=== PATIENT | female | born 1990 | race African-American/Black ===

== ENCOUNTER 2017-11-24 03:41 | Inpatient (IN) ==
[2017-11-24 04:58] LABS: Apearance,Urine Slightly Hazy (Clear); Bilirubin,Urine Negative (Negative); Blood, Urine Moderate mg/dL (Negative); Glucose,Urine (UA) Negative (Negative); Ketones,Urine Negative (Negative); Mucus,Urine Moderate /LPF (Occasional); Nitrite,Urine Negative (Negative); Protein,Urine Negative; RBC,Urine <1 /HPF (0-4); Squamous Epithelial Cell,Urine Occasional /HPF (0-10); Urine Color Yellow (Yellow); Urine Specific Gravity 1.028 (1.001-1.035); Urine Urobilinogen < 2.0 EU/DL (0.2-1.0); WBC,Urine 1 /HPF (0-6)
[2017-11-24] MEDS ORDERED: MEPERIDINE 50 MG/1 ML VIAL IV ONE (05:30)
[2017-11-24] MEDS ORDERED: ONDANSETRON 4 MG/2 ML VIAL IV ONE (05:30)
[2017-11-24] MEDS: LACTATED RINGERS 1,000 ML IV SCH ×3 (05:40→12:52)
[2017-11-24] MEDS ORDERED: BUTORPHANOL 1 MG/ML VIAL IV PRN (09:58)
[2017-11-24] MEDS ORDERED: OXYTOCIN/LR 20 UNIT/1,000 ML BAG IV SCH (10:00)
[2017-11-24] MEDS ORDERED: PROMETHAZINE 25 MG/1 ML VIAL IM ONE (10:08)
[2017-11-24] MEDS ORDERED: FAMOTIDINE 20 MG/2 ML VIAL IV ONE (10:08)
[2017-11-24] MEDS ORDERED: ePHEDrine 50 MG/ML AMP IV PRN ×2 (10:08)
[2017-11-24] MEDS ORDERED: diphenhydrAMINE 50 MG/1 ML VIAL IV PRN ×2 (10:08)
[2017-11-24] MEDS ORDERED: hydrOXYzine HCL 25 MG/1 ML VIAL IM PRN (10:08)
[2017-11-24] MEDS ORDERED: CITRIC ACID/SODIUM CITRATE 30 ML UDCUP PO ONE (10:08)
[2017-11-24] MEDS ORDERED: fentaNYL 2 MCG/ROPIV 0.2% EPID 150 ML EPIDURAL SCH (10:30)
[2017-11-24 10:44] LABS: Basophils % 0.3 % (0.0-0.8); Eosinophils % 0.3 % (0.00-10.9); Hematocrit 37.1 VOL% (35.7-47.0); Hemoglobin 12.1 GM/DL (12.0-16.0); Immature Granulocytes % 0.6 %; Immature Granulocytes Absolute 0.07 #; Lymphocytes # 1.9 10*3/uL (1.4-4.0); Lymphocytes % 15.2 % (21.3-54.2); Mean Corpuscular HGB Conc 32.6 GM/DL (32-36); Mean Corpuscular Hemoglobin 29 PG (27-34); Mean Corpuscular Volume 88.3 FL (87-102); Mean Platelet Volume 11.1 FL (9.6-12.0); Monocytes # 0.6 10*3/uL (0.11-0.8); Monocytes % 4.6 % (1.7-12.7); Platelet Count 198 T/CUMM (130-400); Red Cell Distribution Width 15.4 % (9.3-17.3); White Blood Count 12.7 T/CUMM (4-12)
[2017-11-24 11:02] LABS: Alanine Aminotransferase 14 U/L (13-56); Albumin 2.6 G/DL (3.4-5.0); Alkaline Phosphatase 199 U/L (45-117); Aspartate Amino Transferase 11 U/L (0-37); Bilirubin,Total < 0.39 MG/DL (0.2-1.0); Blood Urea Nitrogen 6 MG/DL (7-18); Calcium 8.9 MG/DL (8.5-10.1); Glucose 85 MG/DL (74-106); Osmolality,Calculated 271.7 MOS/KG (273-304); Sodium 138 MMOL/L (136-145); Total Protein 6.7 G/DL (6.4-8.3)
[2017-11-24 14:04] LABS: Apearance,Urine Slightly Hazy (Clear); Bilirubin,Urine Negative (Negative); Blood, Urine Negative (Negative); Glucose,Urine (UA) Negative (Negative); Ketones,Urine 5 mg/dL (Negative); Mucus,Urine Many /LPF (Occasional); Nitrite,Urine Negative (Negative); Protein,Urine 30 MG/DL; RBC,Urine 1 /HPF (0-4); Squamous Epithelial Cell,Urine Occasional /HPF (0-10); Urine Color Yellow (Yellow); Urine Specific Gravity 1.023 (1.001-1.035); Urine Urobilinogen < 2.0 EU/DL (0.2-1.0); WBC,Urine 4 /HPF (0-6)
[2017-11-24 19:15] LABS: Cord Venous Blood HCO3 22.2 MMOL/L; Cord Venous Blood PO2 27.8
[2017-11-24] MEDS ORDERED: RHO(D) IMMUNE GLOBULIN 300 MCG SYRINGE IM ONE (20:35)
[2017-11-24] MEDS ORDERED: WITCH HAZEL PADS 100/JAR TOP PRN (20:35)
[2017-11-24] MEDS ORDERED: MEASLES/MUMPS/RUBELLA VACCINE 0.5 ML VIAL SUBCUT ONE (20:35)
[2017-11-24] MEDS ORDERED: oxyCODONE/ACETAMINOPHEN 5-325 MG TABLET PO PRN (20:35)
[2017-11-24] MEDS ORDERED: BENZOCAINE 20%/MENTHOL 0.5% SPRAY 56 GM CAN TOP PRN (20:35)
[2017-11-24] MEDS ORDERED: DIPH/TET/ACEL PERT BOOSTER VACCINE 0.5 ML VIAL IM ONE (20:35)
[2017-11-24] MEDS ORDERED: ACETAMINOPHEN 325 MG TABLET PO PRN (20:35)
[2017-11-24] MEDS ORDERED: LANOLIN 50% CREAM 0.3 OZ TUBE TOP PRN (20:35)
[2017-11-24] MEDS ORDERED: HYDROCORTISONE 2.5% RECTAL CREAM 30 GM TUBE TOP PRN (20:35)
[2017-11-24] MEDS ORDERED: IBUPROFEN 800 MG TABLET PO PRN (20:35)
[2017-11-24] MEDS ORDERED: BISACODYL 10 MG SUPP RECTAL PRN (20:35)
[2017-11-24] MEDS ORDERED: ACETAMINOPHEN/CODEINE 300-30 MG TABLET PO PRN (20:35)
[2017-11-24] MEDS ORDERED: OXYTOCIN/LR 20 UNIT/1,000 ML BAG IV ONE (20:41)
[2017-11-24] MEDS: DOCUSATE SODIUM 100 MG CAPSULE PO SCH (21:09)
[2017-11-24] MEDS: oxyCODONE/ACETAMINOPHEN 5-325 MG TABLET PO PRN (23:13)
[2017-11-25 07:14] LABS: Basophils # 0.1 10*3/uL (0.0-0.2); Basophils % 0.4 % (0.0-0.8); Eosinophils # 0.3 10*3/uL (0.0-0.87); Eosinophils % 1.8 % (0.00-10.9); Hematocrit 34.5 VOL% (35.7-47.0); Hemoglobin 11.1 GM/DL (12.0-16.0); Immature Granulocytes % 0.4 %; Immature Granulocytes Absolute 0.07 #; Lymphocytes # 2.5 10*3/uL (1.4-4.0); Lymphocytes % 15.7 % (21.3-54.2); Mean Corpuscular HGB Conc 32.2 GM/DL (32-36); Mean Corpuscular Hemoglobin 29 PG (27-34); Mean Corpuscular Volume 88.9 FL (87-102); Mean Platelet Volume 10.6 FL (9.6-12.0); Monocytes % 6.3 % (1.7-12.7); Neutrophils # 11.9 10*3/uL (1.4-7.4); Neutrophils % 75.4 % (38.7-73.9); Platelet Count 166 T/CUMM (130-400); Red Blood Count 3.88 MC/CUMM (3.8-5.5); Red Cell Distribution Width 15.3 % (9.3-17.3); White Blood Count 15.8 T/CUMM (4-12)
[2017-11-25] MEDS: DOCUSATE SODIUM 100 MG CAPSULE PO SCH ×2 (08:56→22:10)
[2017-11-25] MEDS: oxyCODONE/ACETAMINOPHEN 5-325 MG TABLET PO PRN (13:48)
[2017-11-26] MEDS: oxyCODONE/ACETAMINOPHEN 5-325 MG TABLET PO PRN (00:09)
[2017-11-26 07:19] VITALS: BP 153/85
[2017-11-26] MEDS: DOCUSATE SODIUM 100 MG CAPSULE PO SCH (08:23)
== END 2017-11-26 13:40 | disposition home or self-care (01) | DRG 560 ==
LOC: N.LDOUT 03:41 → N.LD 03:43 → N.LDOUT 10:15 → N.LD 10:15 → N.OB 20:15
PROVIDERS: ADMIT Obstetrics & Gynecology; ATTEND Obstetrics & Gynecology

== ENCOUNTER 2018-04-09 15:13 | Observation (INO) ==
[2018-04-09] MEDS ORDERED: ONDANSETRON ODT 4 MG TABLET PO STA (17:08)
[2018-04-09] MEDS ORDERED: ONDANSETRON ODT 4 MG TABLET PO ONE (17:23)
[2018-04-09 17:28] LABS: Basophils % 0.2 % (0.0-0.8); Eosinophils % 0.2 % (0.00-10.9); Hematocrit 42.5 VOL% (35.7-47.0); Hemoglobin 13.9 GM/DL (12.0-16.0); Immature Granulocytes % 0.5 %; Immature Granulocytes Absolute 0.09 #; Lymphocytes # 1.1 10*3/uL (1.4-4.0); Lymphocytes % 6.2 % (21.3-54.2); Mean Corpuscular HGB Conc 32.7 GM/DL (32-36); Mean Corpuscular Hemoglobin 30 PG (27-34); Mean Platelet Volume 10.8 FL (9.6-12.0); Monocytes # 0.5 10*3/uL (0.11-0.8); Monocytes % 2.8 % (1.7-12.7); Neutrophils # 16.7 10*3/uL (1.4-7.4); Neutrophils % 90.1 % (38.7-73.9); Platelet Count 229 T/CUMM (130-400); Red Blood Count 4.62 MC/CUMM (3.8-5.5); Red Cell Distribution Width 13.8 % (9.3-17.3); White Blood Count 18.5 T/CUMM (4-12)
[2018-04-09 17:29] LABS: Apearance,Urine Slightly Hazy (Clear); Bilirubin,Urine Negative (Negative); Blood, Urine Large mg/dL (Negative); Glucose,Urine (UA) Negative (Negative); Ketones,Urine 5 mg/dL (Negative); Mucus,Urine Few /LPF (Occasional); Nitrite,Urine Negative (Negative); Protein,Urine 30 MG/DL; RBC,Urine 22 /HPF (0-4); Squamous Epithelial Cell,Urine Occasional /HPF (0-10); Urine Color Yellow (Yellow); Urine Specific Gravity 1.021 (1.001-1.035); Urine Urobilinogen < 2.0 EU/DL (0.2-1.0); WBC,Urine 5 /HPF (0-6)
[2018-04-09] MEDS ORDERED: SODIUM CHLORIDE 0.9% 1,000 ML IV STA (17:44)
[2018-04-09] MEDS ORDERED: PANTOPRAZOLE 40 MG VIAL IV STA (17:44)
[2018-04-09] MEDS ORDERED: cefTRIAXone 1,000 MG VIAL ONE (17:57)
[2018-04-09] MEDS ORDERED: PANTOPRAZOLE 40 MG VIAL IV ONE (17:57)
[2018-04-09] MEDS ORDERED: cefTRIAXone 1,000 MG in SODIUM CHLORIDE 0.9% 100 ML IV STA (17:57)
[2018-04-09] MEDS ORDERED: SODIUM CHLORIDE 0.9% 100 ML IV ONE (17:58)
[2018-04-09 18:01] LABS: Alanine Aminotransferase 16 U/L (13-56); Albumin 3.6 G/DL (3.4-5.0); Alkaline Phosphatase 115 U/L (45-117); Aspartate Amino Transferase 9 U/L (0-37); Bilirubin,Total < 0.39 MG/DL (0.2-1.0); Blood Urea Nitrogen 10 MG/DL (7-18); Calcium 8.7 MG/DL (8.5-10.1); Glucose 99 MG/DL (74-106); Osmolality,Calculated 279.3 MOS/KG (273-304); Potassium 3.9 MMOL/L (3.5-5.1); Sodium 141 MMOL/L (136-145); Total Protein 7.7 G/DL (6.4-8.3)
[2018-04-09] MEDS ORDERED: ONDANSETRON 4 MG/2 ML VIAL IV PRN (21:58)
[2018-04-09] MEDS ORDERED: HYDROmorphone 2 MG/1 ML VIAL IV PRN (21:58)
[2018-04-09] MEDS ORDERED: ACETAMINOPHEN 325 MG TABLET PO PRN (21:58)
[2018-04-09] MEDS ORDERED: PROMETHAZINE 25 MG/1 ML VIAL IM PRN (21:58)
[2018-04-09] MEDS ORDERED: MORPHINE 4 MG/1 ML VIAL IV PRN (22:25)
[2018-04-09] MEDS: PIPERACILLIN/TAZOBACTAM 3,375 MG in SODIUM CHLORIDE 0.9% 100 ML IV SCH (22:58)
[2018-04-09] MEDS: SODIUM CHLORIDE 0.45% 1,000 ML IV SCH (22:58)
[2018-04-10] MEDS: PIPERACILLIN/TAZOBACTAM 3,375 MG in SODIUM CHLORIDE 0.9% 100 ML IV SCH ×3 (06:06→21:33)
[2018-04-10] MEDS: SODIUM CHLORIDE 0.45% 1,000 ML IV SCH ×3 (07:30→21:33)
[2018-04-10] MEDS: PANTOPRAZOLE 40 MG TABLET PO SCH (09:27)
[2018-04-10] MEDS ORDERED: fentaNYL 100 MCG/2 ML VIAL ONE (11:23)
[2018-04-10] MEDS ORDERED: SEVOFLURANE 1 UNIT/15 MINUTE INH ONE (11:23)
[2018-04-10] MEDS ORDERED: PROPOFOL 200 MG/20 ML VIAL IV ONE (11:23)
[2018-04-10] MEDS ORDERED: LACTATED RINGERS 1,000 ML IV ONE (11:24)
[2018-04-10] MEDS ORDERED: ROCURONIUM 100 MG/10 ML VIAL IV ONE (11:24)
[2018-04-10] MEDS ORDERED: ACETAMINOPHEN 1,000 MG/100 ML VIAL IV ONE (11:24)
[2018-04-10] MEDS ORDERED: MIDAZOLAM 2 MG/2 ML VIAL ONE (11:24)
[2018-04-10] MEDS ORDERED: ONDANSETRON 4 MG/2 ML VIAL IV PRN (11:45)
[2018-04-10] MEDS ORDERED: MORPHINE 10 MG/1 ML VIAL ONE (11:47)
[2018-04-10] MEDS: MORPHINE 4 MG/1 ML VIAL IV PRN ×2 (11:51→11:57)
[2018-04-10] MEDS ORDERED: PHENOL 1.4% THROAT SPRAY 177 ML BOTTLE PO PRN (20:10)
[2018-04-11] MEDS: PIPERACILLIN/TAZOBACTAM 3,375 MG in SODIUM CHLORIDE 0.9% 100 ML IV SCH (06:01)
[2018-04-11] MEDS: SODIUM CHLORIDE 0.45% 1,000 ML IV SCH (07:47)
[2018-04-11] MEDS: PANTOPRAZOLE 40 MG TABLET PO SCH (08:48)
[2018-04-11 15:35] VITALS: BP 133/84
== END 2018-04-11 12:00 | disposition home or self-care (01) ==
LOC: N.EDINP 15:13 → N.ED 15:13 → N.EDINP 21:44 → N.3E 21:57
PROVIDERS: ADMIT Surgery; ATTEND Surgery